=== PATIENT | male | born 1995 ===

== ENCOUNTER 2018-06-12 03:08 | Emergency (ER) | payer BC ==
[~2018-06-12] VITALS: Ht 172.7 cm; Wt 122.5 kg
[2018-06-12] MEDS ORDERED: PSEU120ER PO (06:35)
[2018-06-12] MEDS ORDERED: CEPH500 PO (06:35)
[2018-06-12] MEDS ORDERED: Prednisone20 MG PO (06:35)
== END 2018-06-12 06:43 | disposition home or self-care (01) ==
LOC: ER 03:08
DX: J04.0 Acute laryngitis (principal)
CPT/HCPCS: 87081; 87430; 99283